=== PATIENT | female | born 1960 | race Caucasian/White ===

== ENCOUNTER 2021-07-09 10:25 | Day surgery (SDC) | payer OTHER ==
[2021-07-09 10:57] LABS: Hematocrit 40.1 % (36.0-45.0); Lymphocytes % 31.5 % (15.3-44.8); MPV 7.8 fL (7.6-11.3); RBC Red Blood Cell Count 4.39 M/uL (3.86-4.86)
[2021-07-09] MEDS ORDERED: CELECOXIB 100 MG CAPSULE ONE (11:12)
[2021-07-09] MEDS ORDERED: CEFAZOLIN SODIUM 1 GM/VIAL ONE (11:12)
[2021-07-09] MEDS ORDERED: ACETAMINOPHEN 500 MG TAB ONE (11:13)
[2021-07-09] MEDS ORDERED: Ringers Lactate 1,000 ML IV ONE (11:13)
[2021-07-09 11:16] LABS: BUN Blood Urea Nitrogen 13 mg/dL (7-18); Bicarbonate 25 mmol/L (21-32); Glucose Level 99 mg/dL (74-106); Potassium 3.8 mmol/L (3.5-5.1); Sodium Level 145 mmol/L (136-145)
[2021-07-09] MEDS ORDERED: CELECOXIB 100 MG CAPSULE PO ONE (11:20)
[2021-07-09] MEDS ORDERED: ACETAMINOPHEN 500 MG TAB PO ONE (11:20)
--- NOTE | 2021-07-09 11:29 | RAD REPORT ---
EXAM DESCRIPTION: RAD - Chest Pa And Lat (2 Views) - 07/09/2021 11:18 am CLINICAL HISTORY: PREop examination, pending hand mass removal COMPARISON: None TECHNIQUE: Frontal and lateral views of the chest were obtained. FINDINGS: The lungs are clear of a peripheral mass or infiltrate. No mae mass or lymphadenopathy. Patient has a mild baseline prominence of the interstitial pattern. Diaphragmatic eventration is pres ent, mild. Heart size is normal and central vasculature is within normal limits. No pleural effusion or pneumothorax seen. No acute bony finding noted. No aortic abnormality. IMPRESSION: No acute cardiopulmonary process.
[2021-07-09] MEDS ORDERED: MUPIROCIN 2% OINT 22GM TUBE TOP ONE (12:35)
[2021-07-09] MEDS ORDERED: ONDANSETRON 4 MG/2 ML VIAL ONE (12:40)
[2021-07-09] MEDS ORDERED: FENTANYL CITR 100 MCG/2 ML ONE (12:40)
[2021-07-09] MEDS ORDERED: dexAMETHasone 10 MG/ML VIAL ONE (12:40)
[2021-07-09] MEDS ORDERED: propofoL 200 MG/20 ML VIAL IV ONE (12:40)
[2021-07-09] MEDS ORDERED: LIDOCAINE 2% MPF 5 ML VIAL ONE (12:40)
[2021-07-09] MEDS ORDERED: MIDAZOLAM HCL 2 MG/2 ML INJ ONE (12:40)
[2021-07-09] MEDS ORDERED: KETOROLAC 30 MG/ML INJ ONE (12:40)
[2021-07-09] MEDS: HYDROMORPHONE HCL 1 MG/ML INJ ONE ×2 (12:42→12:50)
--- NOTE | 2021-07-09 12:48 | P.BOP ---
Preoperative diagnosis: infected R hand necrotic traumatic wound Postoperative diagnosis: infected R hand necrotic traumatic wound Primary procedure: Excsional debridement of infected R hand necrotic traumatic wound Secondary procedure: 4x4cm Estimated blood loss: <10cc Specimen: tissue biopsy Findings: infected R dorsal hand necrotic traumatic wound Anesthesia: General Complications: None Transferred to: Recovery Room Condition: Good
[2021-07-09] MEDS ORDERED: HYDROMORPHONE HCL 1 MG/ML INJ ONE (13:05)
[2021-07-09 13:06] VITALS: O2SAT 99
[2021-07-09] MEDS ORDERED: CODEINE 30MG/APAP 300MG TAB ONE (13:35)
--- NOTE | 2021-07-09 14:03 | DS ---
Diagnosis: Infected right hand necrotic wound. Procedure: Excisional debridement of infected right hand necrotic traumatic wound. Disposition: Home. Activity: As tolerated. No heavy lifting. Plan: Bactroban twice daily to the area. Keep the area clean. If she is going to clean her hand, s he was advised only with clean running water and soap. We will see the patient in a week in our off ce. DALLAS/BRIAN Voice ID: [id number] Report ID: [id number]
--- NOTE | 2021-07-09 14:03 | OP ---
Date of Procedure: 07/09/2021 Surgeon: Elmer Pardo MD Preoperative Diagnosis: Infected right hand necrotic traumatic wounds. Postoperative Diagnosis: Infected right hand necrotic traumatic wounds. Procedure: Excisional biopsy of infected right hand necrotic traumatic wounds, 4 x 4 cm. Estimated Blood Loss: Less than 10 mL. Specimen: Tissue biopsies. Finding: Infected necrotic tissue present. Complications: None. Dressings: Bactroban, wet-to-dry. Indication: This is the case of a 61-year-old patient. The patient believes initially this started when she was working in her garage and she was moving stuff. She does not know if it is an insect bi te or not. She has been treated that, developed an open wound in that area. Has been on more than a week of antibiotics, not improving, getting worse so she came to our office for debridement of that necrotic wound with benefits, alternatives, and risks including, but not limited to infection, bleedi ng, damage to adjacent structures, anesthesia complication, [place], and even . She also understands this may not relieve any symptoms. She might need more than one surgical intervention. She underst ood, signed a consent. The patient understands she will require wound care and to keep it clean afte r the surgery and continue the antibiotics as previously prescribed. Procedure In Detail: The patient was brought to the operating room, placed in supine position. Anes thesia was done without complication. A time-out was called. Right hand was prepped and draped in t he usual sterile fashion. Local anesthesia was applied followed by an incision of the necrotic tissu e with an 11 blade making sure we preserved the tendon and the bone, none of them were exposed. The necrotic tissue was removed. Loculations were explored, opened. The area was irrigated. The necrot ic tissue was sent out and then the hemostasis was obtained. Local anesthesia was applied and then c overed with Bactroban and sterile dressings. The patient tolerated the procedure well. The patient was sent to recovery in stable condition. DALLAS/BRIAN Voice ID: [id number] Report ID: [id number]
[2021-07-09 14:30] VITALS: BP 120/57; TEMP 97.3
== END 2021-07-09 14:20 | disposition home or self-care (01) ==
LOC: OR 10:25
PROVIDERS: ATTEND Surgery
PROC: 0JBJ0ZZ Excision of Right Hand Subcutaneous Tissue and Fascia, Open Approach (ICD-10-PCS; principal; 2021-07-09 12:45)
DX: D04.61 Carcinoma in situ of skin of right upper limb, including shoulder (principal); I96 Gangrene, not elsewhere classified; L03.113 Cellulitis of right upper limb; L08.9 Local infection of the skin and subcutaneous tissue, unspecified; Z20.822 Contact with and (suspected) exposure to COVID-19
CPT/HCPCS: 93005; 85025; 80048; 36415; 88305; 71046; 11042; U0003; J2704; J2250; J3010; J1100; J1170 ×2; J7120; J2405; J0690; 88304

== ENCOUNTER 2021-07-23 07:32 | Day surgery (SDC) | payer OTHER ==
[2021-07-23] MEDS ORDERED: CEFAZOLIN SODIUM 1 GM/VIAL ONE (07:52)
[2021-07-23] MEDS: Ringers Lactate 1,000 ML IV ONE ×2 (07:55→08:27)
[2021-07-23] MEDS ORDERED: MIDAZOLAM HCL 2 MG/2 ML INJ ONE (08:25)
[2021-07-23] MEDS ORDERED: ONDANSETRON 4 MG/2 ML VIAL ONE (08:32)
[2021-07-23] MEDS ORDERED: propofoL 200 MG/20 ML VIAL IV ONE (08:34)
[2021-07-23] MEDS ORDERED: FENTANYL CITR 100 MCG/2 ML ONE (08:41)
[2021-07-23] MEDS ORDERED: dexAMETHasone 10 MG/ML VIAL ONE (08:42)
[2021-07-23] MEDS ORDERED: GLYCOPYRROLATE 0.2 MG/ML SYR ONE (08:42)
[2021-07-23] MEDS: BUPIVACAINE 0.5% PF 10 ML VIAL ONE ×2 (08:57→09:34)
--- NOTE | 2021-07-23 09:07 | P.BOP ---
Preoperative diagnosis: right hand Sq cell carcinoma Postoperative diagnosis: same Primary procedure: Wide excision with frozen section Sq cell carcinoma Estimated blood loss: <5cc Specimen: sq cell carcinoma Findings: wide resection as deep as around tendon sheet Anesthesia: General Complications: None Drain(s): Other (wet to dry/ALEYDA) Transferred to: Recovery Room Condition: Good
[2021-07-23] MEDS: FENTANYL CITR 100 MCG/2 ML ONE ×3 (10:04→10:21)
--- NOTE | 2021-07-23 10:12 | DS ---
Diagnosis: Right hand squamous cell carcinoma. Procedure: Wide excision with frozen section of right hand squamous cell carcinoma. Disposition: Home. Activity: As tolerated. No heavy lifting. Plan: May clean the area with running clean water and soap, then apply Bactroban and wet-to-dry to t he area. We will see the patient in 1 week in my office. PILO Voice ID: [id number] Report ID: [id number]
[2021-07-23] MEDS ORDERED: HYDROMORPHONE HCL 1 MG/ML INJ ONE (10:30)
--- NOTE | 2021-07-23 10:57 | OP ---
Date of Procedure: 07/23/2021 Surgeon: Elmer Pardo MD Preoperative Diagnosis: Right hand squamous cell carcinoma. Postoperative Diagnosis: Right hand squamous cell carcinoma. Procedure: Wide excision with frozen section of squamous cell carcinoma of right hand. Specimen: Squamous cell carcinoma. Anesthesia: General plus local. Estimated Blood Loss: Less than 5 cc. Complications: None. . Indication: This is the case of a 61-year-old patient, who comes to us with initially with what she thought was an infection with spider bite, but then went to have a final pathology, shows cancer carc inoma, so she was booked for wide resection. Benefits, alternatives, and risks of wide excision with frozen section fully explained, which include, but not limited to infection, bleeding, damage to adj acent structures, anesthesia complication, recurrence, [place], and even . She also understands this may not relieve any symptoms. She might need more than one surgical intervention. She understood, signed a consent. Procedure In Detail: The patient was brought to the operating room, placed in supine position. Anes thesia was done without complication. Right hand was prepped and draped in the usual sterile fashion . A time-out was called and we had a previous wound area from previous infection with abscess. So, we have an open area, we cleaned the best we can and then after that went in and got a little bit ext ra margins of the area and then went all the way deep up to the tendon sheath. We did not open the t endon sheet or go with the tendon, but that is the only thing left in that region. Area was resected . We sent this for frozen section. The deep margin she thinks is completely out. She believe it is hyperkeratosis. She wants to take it upwards and want to take a final specimen for permanent. That case, then we obtained hemostasis. We put 1 anesthesia near the area of the tendon just to cover it , so it does not get dry. The rest of the wound was left open to close by secondary intention. We a re doing the wet-to-dry and Bactroban in the next few weeks. The patient tolerated the procedure wel l. The patient is on her way to recovery in stable condition. Sponge count and instrument counts co rrect. HM/MODL Voice ID: [id number] Report ID: [id number]
[2021-07-23 11:07] VITALS: BP 117/55
[2021-07-23 11:36] VITALS: TEMP 97.6; O2SAT 96
== END 2021-07-23 11:34 | disposition home or self-care (01) ==
LOC: OR 07:32
PROVIDERS: ATTEND Surgery
PROC: 0JBJ0ZZ Excision of Right Hand Subcutaneous Tissue and Fascia, Open Approach (ICD-10-PCS; principal; 2021-07-23 08:30)
DX: C44.622 Squamous cell carcinoma of skin of right upper limb, including shoulder (principal); Z20.822 Contact with and (suspected) exposure to COVID-19
CPT/HCPCS: 88331; 88332; 88305; 11622; U0003; J2704; J2250; J3010 ×2; J1100; J1170; J7120; J2405; J0690